=== PATIENT | female | born 1955 | race Caucasian/White ===

== ENCOUNTER 2018-01-10 15:13 | Emergency (ER) | payer BC, OTHER ==
[2018-01-10 16:17] LABS: Hemoglobin 11.6 g/dL (12.0-16.0); Mean Corpuscular HGB CONC 32.7 g/dL (32.0-36.0); Mean Corpuscular Hemoglobin 26.7 pg (27.0-31.0); Mean Corpuscular Volume 81.9 fl (81.0-99.0); Mean Platelet Volume 7.4 fL (7.4-10.4); Platelet Count 306 thou/uL (130-400); RBC Distribution Width 15.3 % (11.5-14.5); Red Blood Cell (RBC) Count 4.33 mill/uL (4.20-5.40); White Blood Cell (WBC) Count 2.7 thou/uL (4.8-10.8)
[2018-01-10 16:28] LABS: Anion Gap 13 mmol/L (10-20); BUN (Urea Nitrogen) 15 mg/dL (9.8-20.1); CK (CPK) 32 U/L (29-168); Calc. Creatinine Clearance 0 mL/min (70-130); Calcium 8.9 mg/dL (7.8-10.44); Carbon Dioxide 28 mmol/L (23-31); Chloride 100 mmol/L (98-107); Estimated GFR-MDRD 33; Glucose 115 mg/dL (80-115); Potassium 4.4 mmol/L (3.5-5.1); Sodium 137 mmol/L (136-145)
[2018-01-10] MEDS ORDERED: Ondansetron HCl/PF 4 MG/2 ML Vial ONE (16:29)
[2018-01-10 16:32] LABS: CKMB 0.4 ng/mL (0-6.6); Troponin I Less than 0.010 ng/mL (< 0.028)
[2018-01-10 16:36] LABS: Anisocytosis SLIGHT = 6-15 cells (100X) (0-5/hpf); Eosinophils 2 % (0-10); Lymphocytes 38 % (21-51); MDiff Complete? YES; Monocytes 3 % (0-10); Neutrophil 37 % (42-75); PLT Morphology Comment Appears Adequate; Reactive Lymphocytes 18 % (0-10)
--- NOTE | 2018-01-10 16:37 | RAD ---
PORTABLE AP CHEST XRAY: DATE: 01/10/18. HISTORY: Chest pain. Low blood pressure. COMPARISON: 03/23/16. FINDINGS: Postsurgical changes of the lower cervical spine are again seen. Since the prior exam, there has bee n interval placement of a right subclavian MediPort catheter with tip overlying the distal SVC. Card iac silhouette and pulmonary vasculature are within normal limits. Lungs remain clear. Postsurgical changes related to left glenohumeral prosthesis of left shoulder are now present, and there are anch or screws again overlying the right humeral head. IMPRESSION: No acute cardiopulmonary process. POS: [facility]
== END 2018-01-10 19:24 | disposition home or self-care (01) ==
LOC: ERS 15:13
DX: E86.0 Dehydration (principal); E03.9 Hypothyroidism, unspecified; I10 Essential (primary) hypertension
CPT/HCPCS: 71045; 80048; 82553; 84484; 85025; 93005; 96361; 96374; J2405

== ENCOUNTER → 2022-06-11 | Day surgery (SDC) | payer OTHER, MEDICAID ==
[2022-06-08 12:43] VITALS: BMI 28.7
[2022-06-11 08:26] VITALS: BP 108/74; TEMP 99.4
== END | disposition home or self-care (01) ==
LOC: EDSTATUS 05-04 08:00 → RAD 07:15
PROVIDERS: ATTEND Family Medicine
PROC: B01B1ZZ Fluoroscopy of Spinal Cord using Low Osmolar Contrast (ICD-10-PCS; principal; 2022-06-11)
DX: M47.22 Other spondylosis with radiculopathy, cervical region (principal); M48.02 Spinal stenosis, cervical region; M47.813 Spondylosis without myelopathy or radiculopathy, cervicothoracic region; M48.03 Spinal stenosis, cervicothoracic region; Z79.890 Hormone replacement therapy; Z79.899 Other long term (current) drug therapy; Z98.1 Arthrodesis status
CPT/HCPCS: 62302; 72126